=== PATIENT | male | born 1950 | race Caucasian/White ===

== ENCOUNTER 2017-02-02 06:27 | Emergency (ER) | payer MEDICARE, OTHER ==
[~2017-02-02 06:27] MED LIST: ADVAIR 2501 DISK W/D; ADVAIR 25028 BLISTE1 INH; ALBUTEROL SULF8.5 G2 INH; AMIGESIC750 MG PO; AMOX TR-K CLV1 EAC4 PO; ANALGESIC BALM30 G2 TOP; AUGMENTIN 875-1 EAC2 PO; AUGMENTIN 875-11 TAB PO; BREO ELLIPTA 21 EACH INH; CABERGOLINE PO; CABERGOLINE0.5 MG; CABERGOLINE0.5 MG PO; CELEXA20 MG PO; CELEXA40 M2 PO; CHEWABLE-VITE1 EAC1 PO; CIPRO500 M2 PO; COLACE100 MG PO; COMPLETE MULTI1 EAC3 PO; DEPAKOTE250 MG; DEPAKOTE250 MG PO; DEPAKOTE500 M1 PO; DEPAKOTE500 MG PO; DEXAMETHAS0.5 MG/52 PO; DIVALPROEX SOD500 M4 PO; DOSTINEX0.5 MG; ECONAZOLE NITRA30 GM TP; ECOTRIN81 MG PO; FIORICET/CODEINE1 EA PO; FISH OIL 1,2001 EAC4 PO; FISH OIL1 CAP PO; FLAGYL500 MG; FLAGYL500 MG PO; FLOVENT DISKU250 MC1 INH; FLOVENT DISKU250 MCG IH; GABAPENTIN300 MG; HYDROCHLOROTH12.5 M3 PO; HYDROCODON-ACE1 EA16 PO; HYDROCODON-ACE1 EA18 PO; HYDROCODON-ACE1 EAC7 PO; HYDROCORTISONE10 M3 PO; LEVAQUIN500 MG PO; LEVAQUIN750 MG PO; LISINOPRIL-HCTZ; LISINOPRIL10 M1 PO; LISINOPRIL10 MG PO; LOMOTIL 2.5-0.1 EACH PO; LOMOTIL1 TA1 PO; LUNESTA2 MG; MAXAIR AUTOHALE14 GM IH; MELATONIN3 M4 PO; MELATONIN5 M7 PO; MEN'S MULTI-VI1 EACH PO; MILK OF MA400 MG/5 M PO; MOBIC7.5 M1 PO; MULTIVITAMIN1 CAP; MULTIVITAMIN1 TAB PO; NEURONTIN300 MG PO; NEURONTIN600 M1 PO; NORCO 5-325 TA1 EACH PO; NORCO 7.5-3251 EACH PO; NORCO 7.5/3251 TA1 PO; OMEPRAZOLE20 M2 PO; OMEPRAZOLE20 M4 PO; ONDANSETRON HCL4 M2 PO; PERCOCET 5/3251 TAB PO; PERCOCET 5MG/AP1 TA1 PO; PERCOCET 7.5-31 EAC1 PO; PLAVIX75 MG PO; PREDNISONE20 MG; PRILOSEC; PRIMIDONE; PROAIR HFA8.5 GM INH; PROMETHAZINE HC25 M3 PO; PROPOXACET N; SALSALATE PO; SALSALATE750 MG PO; SENNA PLUS TAB1 EAC1 PO; SENOKOT-S TABLE1 TAB PO; SINGULAIR10 M1 PO; TIZANIDINE HCL4 M2 PO; TRAMADOL HCL50 MG PO; TRIAMCINOLONE A80 GM TP; TYLENOL SINUS1 EACH PO; ULTRAM50 M1 PO; VALIUM5 M1 PO; VENTOLIN HFA18 GM IH; VITAMIN D31000 UNI3 PO; XOPENEX HFA15 GM; ZANTAC150 MG; ZANTAC150 MG PO; ZOFRAN ODT4 MG PO; [UNRECOGNIZED DRUG - OTHER]; [UNRECOGNIZED DRUG - OTHER]; [UNRECOGNIZED DRUG - OTHER] PO
== END 2017-02-02 11:29 ==
LOC: EDMED 06:27
DX: I10 Essential (primary) hypertension (principal); R51 Headache; R11.0 Nausea; J45.909 Unspecified asthma, uncomplicated; Z86.69 Personal history of other diseases of the nervous system and sense organs; Z86.73 Personal history of transient ischemic attack (TIA), and cerebral infarction without residual deficits; Z79.899 Other long term (current) drug therapy
CPT/HCPCS: J1200; J1885; J2765; J7030